=== PATIENT | female | born 1990 ===

== ENCOUNTER 2025-11-03 08:38 | Outpatient (CLI) | payer MEDICARE, MEDICAID ==
[2025-11-03] VITALS (16 sets, daily range): BP systolic 155–206; BP diastolic 69–112; PULSE 78–111
== END 2025-11-03 23:59 | disposition home or self-care (01) ==
LOC: CARD DIAG 08:38
PROVIDERS: ATTEND Internal Medicine Interventional Cardiology
DX: R55 Syncope and collapse (principal)
CPT/HCPCS: 93660